=== PATIENT | male | born 1995 | race Caucasian/White ===

== ENCOUNTER 2022-04-07 03:41 | Emergency (ER) | payer OTHER ==
[2022-04-07] MEDS ORDERED: Lidocaine 1% 10 ML MDV INJECT ONE (03:44)
[2022-04-07] MEDS ORDERED: Diphtheria,Pertussis(Acell),Tetanus Vaccine 0.5 ML Syringe IM ONE (04:05)
== END 2022-04-07 06:00 | disposition home or self-care (01) ==
LOC: VM.ED 03:41
DX: S01.511A Laceration without foreign body of lip, initial encounter (principal); Z23 Encounter for immunization; Z88.0 Allergy status to penicillin; Y04.8XXA Assault by other bodily force, initial encounter
CPT/HCPCS: 12011; 70450; 90471; 99283; 99283-25